=== PATIENT | female | born 1980 | race Two or more races ===

== ENCOUNTER 2018-01-13 12:47 | Emergency (ER) | payer OTHER ==
[~2018-01-13] VITALS: Ht 160 cm; Wt 88.6 kg
[~2018-01-13 12:47] MED LIST: AMLODIPINE BESYL5 MG PO; ATORVASTATIN CA40 MG PO; LABETALOL HCL100 MG PO; LISINOPRIL-HCT1 EAC3 PO; MOTRIN IB200 MG PO; MOTRIN400 MG PO; NOHOMEMEDS; PERCOCET 5/31 TABLET PO; TOPIRAMATE25 MG PO; TORADOL10 MG PO
[2018-01-13 16:27] VITALS: BP 174/106
== END 2018-01-13 16:28 | disposition home or self-care (01) ==
LOC: EME 12:47
PROC: 3E0234Z Introduction of Serum, Toxoid and Vaccine into Muscle, Percutaneous Approach (ICD-10-PCS; principal; 2018-01-13)
DX: S80.02XA Contusion of left knee, initial encounter (principal); S60.221A Contusion of right hand, initial encounter; S60.511A Abrasion of right hand, initial encounter; W01.0XXA Fall on same level from slipping, tripping and stumbling without subsequent striking against object, initial encounter; Y93.89 Activity, other specified; Y99.0 Civilian activity done for income or pay; Z23 Encounter for immunization; I10 Essential (primary) hypertension; Z88.5 Allergy status to narcotic agent
CPT/HCPCS: 73080; 73130; 73564; 99281; 99284